=== PATIENT | female | born 1990 | race Caucasian/White ===

== ENCOUNTER 2019-06-10 17:59 | Inpatient (IN) | payer OTHER, SELFPAY ==
--- NOTE | ~2019-06-10 | CT_ITS ---
EXAMINATION: CT pelvis w con DATE: 06/10/2019 20:58 INDICATION: Pelvic abscess. Redness, warmth and pain. TECHNIQUE: Computed tomography (CT) of the pelvis was performed with 100 cc Omnipaque 350 intravenous contrast. The dose-length product was 997.40 mGy-cm. Automated exposure control and iterative recons truction technique were employed. COMPARISON: None FINDINGS: There is inflammation of the subcutaneous tissues anteriorly overlying the pelvis. No discr ete walled off fluid collection to suggest abscess. Nonenlarged inguinal lymph nodes are present. No abnormal pelvic masses or fluid collections. Nonobstructive bowel gas pattern. No free air or free fl uid. No acute osseous abnormality. IMPRESSION: 1. Inflammation of the subcutaneous tissues overlying the pelvis anteriorly, consistent with cellulit is. No evidence for drainable fluid collection to suggest abscess. Reviewed, dictated and finalized at location A. IMPRESSION: 1. Inflammation of the subcutaneous tissues overlying the pelvis anteriorly, co nsistent with cellulitis. No evidence for drainable fluid collection to suggest abscess.
[2019-06-10 18:10] VITALS: BP 132/82; BP 143/84; PULSE 136; PULSE 138; RESP 18; RESP 19; TEMP 38.3; O2SAT 100; O2SAT 99
[2019-06-10 18:59] LABS: Basophils Percent Auto 0.2 % (0.2-1.2); Eosinophils Absolute Auto 0.1 K/mm3 (0-0.3); Eosinophils Percent Auto 0.4 % (0-4.4); Hematocrit 35.4 % (37.0-47.0); Hemoglobin 10.7 g/dL (12.0-15.0); Immature Granulocyte Absolute 0.06 K/mm3 (0.00-0.031); Immature Granulocyte Percent A 0.5 % (0-0.5); Lymphocytes Absolute Auto 1.74 K/mm3 (0.9-3.2); Lymphocytes Percent Auto 14.7 % (18.3-44.2); Mean Corpuscular HGB Conc 30.2 g/dl (32-36); Mean Corpuscular Hemoglobin 21.5 pg (26-34); Mean Corpuscular Volume 71.1 fl (80-100); Mean Platelet Volume 10.4 fl (7.4-10.4); Monocytes Absolute Auto 0.9 K/mm3 (0.1-0.6); Monocytes Percent Auto 7.5 % (2.6-8.5); Neutrophils Absolute Auto 9.1 K/mm3 (1.3-6.7); Neutrophils Percent Auto 76.7 % (45.5-73.1); Platelet Count Result 194 k/mm3 (150-375); Red Blood Count 4.98 M/mm3 (4.2-5.4); Red Cell Distribution Width 16.9 % (11.5-14.5); White Blood Count 11.9 K/mm3 (4.5-10.0)
[2019-06-10] MEDS: SODIUM CHLORIDE 0.9% IV 1,000 ML 999 ML IV CONT ×2 (19:09→21:47)
[2019-06-10 19:10] LABS: Lactic Acid Reflex 1.8 mmol/L (0.7-2.1)
[2019-06-10 19:13] LABS: Blood Urea Nitrogen 5 mg/dL (7-17); Calcium 8.6 mg/dL (8.4-10.2); Carbon Dioxide 26 mmol/L (22-30); Chloride 100 mmol/L (98-107); Estimated CRCL calculation 135 ml/min; Estimated Glomerular Filt Rate > 60; Glucose 163 mg/dL (65-105); Potassium 3.5 mmol/L (3.4-5.0); Sodium 135 mmol/L (137-145)
--- NOTE | 2019-06-10 19:22 | ED.SKABFB ---
HPI - Skin/Abscess/Foreign Bdy General Chief complaint: Skin/Abscess/Foreign Body <CHIDI Reis Last Filed: 06/10/19 21:39> Stated complaint: abscess <CHIDI Reis Last Filed: 06/10/19 21:39> Time Seen by Provider: 06/10/19 18:36 <CHIDI Reis Last Filed: 06/10/19 21:39> Source: patient <CHIDI Reis Last Filed: 06/10/19 21:39> Mode of arrival: ambulatory <CHIDI Resi Last Filed: 06/10/19 21:39> Limitations: no limitations <CHIDI Reis Last Filed: 06/10/19 21:39> History of Present Illness HPI narrative: This is a 28 year old female that presents to the ER for abscess x 3 days. Reports an abscess in the pubic region. Reports she was seen at [facility] for this yesterday and it was drained. Reports only a small amount of drainage was produced. She took 3 doses of Bactrim so far. Reports since this morning the area of redness and swelling has increased. Also reports a fever today. Denies vomiting. <CHIDI Reis Last Filed: 06/10/19 21:39> Related Data Home medications: Home Medications Medication Instructions Recorded Confirmed hydrocodone-acetaminophen [[place]] 06/10/19 sulfamethoxazole-trimethoprim 06/10/19 [Bactrim DS] <CHIDI Reis Last Filed: 06/10/19 21:39> Allergies/Adverse reactions: Allergies Allergy/AdvReac Type Severity Reaction Status Date / Time No Known Allergies Allergy Verified 06/10/19 18:12 <CHIDI Reis Last Filed: 06/10/19 21:39> Review of Systems Review of Systems: Narrative: CONSTITUTIONAL: Reports fever GASTROINTESTINAL: Denies abdominal pain, nausea, vomiting GENITOURINARY: Denies dysuria SKIN: Reports erythema and edema <CHIDI Reis Last Filed: 06/10/19 21:39> All systems reviewed & are unremarkable except as noted in HPI and below <Miladys Doherty PA-C - Last Filed: 06/10/19 21:39> [facility] Social History Social History: Social History (Updated 06/10/19 @ 19:24 by Miladys Doherty PA-C) Smoking status: Never smoker Alcohol intake: never Substance use: never Gender identity (if verbalized by the patient): Female <Miladys Doherty PA-C - Last Filed: 06/10/19 21:39> Exam Narrative: Exam Narrative: GENERAL: Well-appearing, well-nourished, and in no acute distress. HEAD: Normocephalic, atraumatic. EYES: EOMI. ABDOMEN: Soft, nontender, nondistended, normal active bowel sounds. EXTREMITIES: Normal range of motion. No edema. SKIN: Warm, dry. Large area of erythema and edema to the mons pubis with purulent drainage NEURO: No focal deficits. Alert and oriented x3. PSYCH: Normal mood and affect <Miladys Doherty PA-C - Last Filed: 06/10/19 21:39> Course APPARATUS LINEMAN/PA Physician Supervision For this patient encounter, I reviewed the APPARATUS LINEMAN or PA documentation, treatment plan, and medical decision making; and I had [id number] time with this patient. Patient evaluated at bedside with physician automobile mechanic assistant. Patient is febrile and tachycardic meeting criteria for sepsis. Patient has cellulitis of the pubic region. No drainable fluid collection noted on imaging and patient had attempt at I&D at another hospital previously. Patient will be admitted to hospitalist service for IV antibiotics and further care. Patient reports pain with movement, but is currently comfortable. <Danay Huizar MD - Last Filed: 06/10/19 21:49> Consultations Consultation #1: Spoke with hospitalist about patient and work-up who accepts admission <Miladys Doherty PA-C - Last Filed: 06/10/19 21:39> Date: 06/10/19 <Miladys Doherty PA-C - Last Filed: 06/10/19 21:39> Time: 21:37 <Miladys Doherty PA-C - Last Filed: 06/10/19 21:39> Vital Signs Vital signs: Vital Signs Temperature 101.0 F H 06/10/19 18:10 Pulse Rate 136 H 06/10/19 18:10 Respiratory Rate 19 06/10/19 18:10 Blood Pressure 143/84 H
[2019-06-10 19:23] LABS: CRP 19.2 mg/dL (<1.0)
[2019-06-10 19:34] LABS: Erythrocyte Sedimentation Rate 19 mm/hr (0-20)
[2019-06-10 20:54] LABS: Add Urine Microscopic? YES; Appearance Urine Clear (Clear); Bilirubin Urine Negative (Negative); Blood Urine Negative (Negative); Color Urine Yellow (Yellow); Glucose Urine UA Negative (Negative); Ketones Urine Negative (Negative); Leukocyte Esterase Ur Negative LEU/UL (Negative); Mucus Urine Few /lpf; Nitrate Urine Negative (Negative); Protein Urine 2+ mg/dL (Negative); Squamous Epithelial Cell Urine Many /hpf (Few)
[2019-06-10 20:55] LABS: Specific Grav Ur 1.031 (1.001-1.035)
[2019-06-10 21:00] VITALS: BP 116/78; PULSE 118; RESP 18; O2SAT 98
--- NOTE | 2019-06-10 21:21 | PC.NURSE ---
multiple iv lines infiltrated and meds started and stopped twice
[2019-06-10 21:28] LABS: Hemoglobin A1C 6.1 % (<5.7)
[2019-06-10 22:00] VITALS: BP 119/80; PULSE 103; RESP 20; O2SAT 100
[2019-06-10 22:58] VITALS: BP 126/91; PULSE 104; RESP 20; O2SAT 100
--- NOTE | 2019-06-10 23:05 | PC.NURSE ---
This patient, Charleen Wilkerson, was admitted to Medical Room 249-01. Patient/family oriented to hospital policies and general routines including ID bracelet, bed and alarms, visiting hours, pain management, procedures, bathroom and other care routines, personal items, smoking policy, room service/diet, and visiting hours. Valuables list has been completed. Information on how to activate the Rapid Response Team has been discussed. Patient/Family are encouraged to report perceived risks to care and to ask questions if they do not understand what they are told or what they should do.
[2019-06-10] MEDS: SODIUM CHLORIDE 0.9% IV 1,000 ML 125 ML IV CONT (23:12)
[2019-06-10 23:36] VITALS: BP 123/74; PULSE 103; RESP 16; TEMP 37; O2SAT 100; BMI 44.4
--- NOTE | 2019-06-11 00:05 | PM.IMHP ---
H&P: HPI History of Present Illness Chief complaint: Suprapubic abscess, fever Narrative: Date and time of patient contact: 06/11/2019 around midnight Charleen Wilkerson is a 28 year old female with a past medical history of obesity and gestational diabetes who presented to the ER due to worsening erythema around her suprapubic abscess despite antibiotic therapy. The patient reports that she had been to [facility] ER on 06/09/2019 due to erythema to her mons pubis. She had a small localized area of erythema that was tender to palpation with some mild surrounding erythema. The provider at the outside ER attempted to open the area of abscess with not much return of infected material. Patient was discharged home on Bactrim. Despite taking 3 doses of Bactrim patient had had fevers of 101? on and off all day on the . She also noticed increased erythema to her mons pubis extending up into her pannus fold and spread of erythema laterally as well. She reports that she had been having a pain in her mons pubis for approximately 3 days and thought she had an ingrown hair. She subsequently used a electric razor to shave so that she go localize the exact side of infection. She reports that she had not shaved her months prior to that. She also had had 2 small punctate areas of erythema to her right upper thigh that have remained stable if not had any purulence drainage. She has had decreased appetite due to her infection but denies any nausea or vomiting. After IV fluids and antibiotics were received in the ER the patient reported a return of her appetite and she was able to tolerate to turkey sandwich prior to my evaluation. She denies any dysuria or changes in urinary frequency. She has not had any polydipsia, polyuria or polyphagia. She has not had any cough, cold symptoms or recent ill contacts. She lives at home with her [id number] daughter. She does not have a history of prior recurrent skin infections. She reports moderate tenderness to palpation of mons. Her pain was unrelieved despite receiving a prescription for Adin and antibiotics from outside facility. Review of Systems Review of Systems: Narrative: 12 systems were reviewed with pertinent positives and negatives per HPI. Except as documented in the HPI, all other systems were reviewed and are negative. [facility] Past Medical History Medical History Gestational diabetes Obesity, morbid, BMI 40.0-49.9 Surgical History Surgical History No significant past surgical history Family History Family History Father Hypertension Diabetes mellitus Mother Diabetes mellitus Sibling Patient's brother is in good health Social History Social History (Updated 06/11/19 @ 02:05 by Alma Pruett DO) Social History: The patient is the youngest of 8 children. However she only has 1 full sibling. Primary care physician: None Code status: Full code Smoking status: Never smoker Alcohol intake: never Substance use: never Living arrangements: with family Additional living arrangements comments: The patient lives at home with her [id number] daughter. 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 Gender identity (if verbalized by the patient): Female Spiritual care concerns: No Agree to blood products: Yes Meds Home Medications and Allergies Home Medications Medication Instructions Recorded Confirmed Type sulfamethoxazole-trimethoprim 1 tablet PO Q12H 06/10/19 06/10/19 History [Bactrim DS] Allergies Allergy/AdvReac Type Severity Reaction Status Date / Time No Known Allergies Allergy Verified 06/10/19 18:12 Vital Signs Vital Sign
[2019-06-11] MEDS: KETOROLAC 30 MG/ML VIAL (*BKC) IV PUSH (04:28)
[2019-06-11 04:52] LABS: Hemoglobin 9.6 g/dL (12.0-15.0); Mean Corpuscular Hemoglobin 21.1 pg (26-34); Mean Corpuscular Volume 70.3 fl (80-100); Mean Platelet Volume 10.9 fl (7.4-10.4); Platelet Count Result 180 k/mm3 (150-375); Red Blood Count 4.55 M/mm3 (4.2-5.4); Red Cell Distribution Width 16.9 % (11.5-14.5); White Blood Count 10.1 K/mm3 (4.5-10.0)
[2019-06-11 05:09] LABS: Blood Urea Nitrogen 5 mg/dL (7-17); Carbon Dioxide 24 mmol/L (22-30); Chloride 105 mmol/L (98-107); Estimated CRCL calculation 186 ml/min; Estimated Glomerular Filt Rate > 60; Glucose 151 mg/dL (65-105); Potassium 3.8 mmol/L (3.4-5.0); Sodium 135 mmol/L (137-145)
[2019-06-11 06:00] VITALS: BP 115/65; PULSE 102; RESP 18; TEMP 35.4; O2SAT 99
[2019-06-11] MEDS: SODIUM CHLORIDE 0.9% IV 1,000 ML 125 ML IV CONT (07:16)
[2019-06-11] MEDS: ENOXAPARIN 40 MG/0.4 ML SYRINGE SUB-Q ×2 (08:32→20:51)
--- NOTE | 2019-06-11 12:11 | PM.IMPN ---
Progress Note: A&P Assessment and Plan (1) Sepsis: Qualifiers: Sepsis acute organ dysfunction status: without acute organ dysfunction Sepsis type: sepsis due to unspecified organism Qualified Code(s): A41.9 - Sepsis, unspecified organism Code(s): A41.9 - Sepsis, unspecified organism Status: Acute Assessment and Plan: Due to cellulitis/abscess of the mons pubis She was found to be septic with fever, tachycardia, leukocytosis on arrival. Today, she is still tachycardic, and last fever was 1800 last night. Will continue monitoring sepsis. (2) Cellulitis: Qualifiers: Site of cellulitis: trunk Site of cellulitis of trunk: groin Qualified Code(s): L03.314 - Cellulitis of groin Code(s): L03.90 - Cellulitis, unspecified Status: Acute Assessment and Plan: The patient failed outpatient antibiotics (Bactrim) that were prescribed by [facility] on 06/09/2019. Patient received 1 dose of vancomycin in the ER and [address] Pelvis showed no acute abcess. I called [facility] and received her Wound Cultures which showed Heavy Growth of Staph aureus and today results showed MRSA. Sensitivities to Bactrim, Vancomycin, Doxycycline, Tetracycline, Linezolid, Gentamycin, Clindamycin. We will continue IV Vancomycin and Ancef at this time and continue monitoring overnight due to continued tachycardia and leukocytosis. Pending wound culture from our facility and blood cultures. Continue monitoring patients symptoms, labs and vitals. (3) History of MRSA infection: Code(s): Z86.14 - Personal history of Methicillin resistant Staphylococcus aureus infection Status: Acute Assessment and Plan: Records from [facility] show MRSA infection to her wound from 06/09/2019 (4) Obesity, morbid, BMI 40.0-49.9: Code(s): E66.01 - Morbid (severe) obesity due to excess calories Status: Acute Assessment and Plan: The patient has a hemoglobin A1c of 6.1 indicating increased risk of diabetes. She denies any excessive daytime sleepiness, snoring or abnormally disrupted sleep. A discussion of the potential benefits of a 10% loss in body weight and or addition of exercise to her daily routine was discussed. Time Spent With Patient Time with patient: 25 - 35 minutes Subjective Date/time seen: 06/11/19 12:11 Interval history: Date of Service 06/11/2019: The patient reports improvement to her erythema, edema to her panus today. She reported taking Bactrim as recommended for 3 doses and had continued worsening symptoms. She denies anymore fevers or chills today. She denies chest pain, shortness of breath, cough, nausea, vomiting, abdominal pain, diarrhea, leg swelling, calf pain,vaginal bleeding or any other symptoms at this time. Review of Systems Review of Systems: All systems reviewed & are unremarkable except as noted in HPI and below Exam Narrative: Exam Narrative: General: 28-year-old woman sitting up in bed watching TV. Appears comfortable. In no acute distress. Skin: See picture. No jaundice or cyanosis. Good skin turgor. Neck: Full range of motion. Supple. Nontender. Respiratory: Lungs are clear to auscultation bilaterally. No bony chest wall tenderness. Cardiovascular: The heart has a regular rate and rhythm without murmur. No carotid bruits. Lower extremities: No lower extremity edema. Distal pulses are easily palpated. No calf tenderness to palpation. Gastrointestinal: The abdomen is soft, nontender and nondistended with active bowel sounds. Psychiatric: Lucid and oriented. Memory intact. Neurologic: No focal deficits. Speech is clear. No facial drooping. : Female genitals images: 1. Superior border of slight eryth
[2019-06-11 13:25] VITALS: BP 128/70; PULSE 118; RESP 16; TEMP 38.3; O2SAT 100
[2019-06-11 13:29] VITALS: TEMP 38.2
--- NOTE | 2019-06-11 13:33 | PC.NURSE ---
MIKE MONK NOTIFIED OF TEMP 100.8.
[2019-06-11 21:33] VITALS: BP 134/64; PULSE 114; RESP 20; TEMP 37.2; O2SAT 100
[2019-06-12] MEDS: KETOROLAC 30 MG/ML VIAL (*BKC) IV PUSH (05:11)
[2019-06-12 05:17] LABS: Basophils Percent Auto 0.2 % (0.2-1.2); Eosinophils Absolute Auto 0.1 K/mm3 (0-0.3); Eosinophils Percent Auto 1.6 % (0-4.4); Hematocrit 28.7 % (37.0-47.0); Hemoglobin 8.6 g/dL (12.0-15.0); Immature Granulocyte Absolute 0.05 K/mm3 (0.00-0.031); Immature Granulocyte Percent A 0.6 % (0-0.5); Lymphocytes Absolute Auto 1.73 K/mm3 (0.9-3.2); Lymphocytes Percent Auto 21.1 % (18.3-44.2); Mean Corpuscular Hemoglobin 21.2 pg (26-34); Mean Corpuscular Volume 70.9 fl (80-100); Mean Platelet Volume 10.7 fl (7.4-10.4); Monocytes Absolute Auto 0.7 K/mm3 (0.1-0.6); Neutrophils Absolute Auto 5.6 K/mm3 (1.3-6.7); Neutrophils Percent Auto 68.5 % (45.5-73.1); Platelet Count Result 157 k/mm3 (150-375); Red Blood Count 4.05 M/mm3 (4.2-5.4); Red Cell Distribution Width 16.9 % (11.5-14.5); White Blood Count 8.2 K/mm3 (4.5-10.0)
[2019-06-12 05:36] LABS: Transferrin 222 mg/dL (206-381)
[2019-06-12 05:42] LABS: Blood Urea Nitrogen 4 mg/dL (7-17); CRP 17.7 mg/dL (<1.0); Calcium 8.1 mg/dL (8.4-10.2); Carbon Dioxide 26 mmol/L (22-30); Chloride 105 mmol/L (98-107); Estimated CRCL calculation 137 ml/min; Estimated Glomerular Filt Rate > 60; Glucose 124 mg/dL (65-105); Potassium 3.6 mmol/L (3.4-5.0); Sodium 137 mmol/L (137-145)
[2019-06-12 06:00] VITALS: BP 121/74; PULSE 92; RESP 16; TEMP 36.3; O2SAT 98
[2019-06-12 06:27] LABS: Iron 14 ug/dL (37-170)
[2019-06-12 06:36] LABS: Folic Acid 14.3 ng/mL (2.76->20); Percent Iron Saturation 5 % (20-50)
[2019-06-12] MEDS: ENOXAPARIN 40 MG/0.4 ML SYRINGE SUB-Q (08:14)
[2019-06-12] MEDS: CYANOCOBALAMIN INJ 1,000 MCG/ML VIAL 1000 MCG IM (08:56)
[2019-06-12 13:17] VITALS: BP 129/64; PULSE 113; RESP 18; TEMP 36.8; O2SAT 100
[2019-06-12 14:00] VITALS: BP 145/68; PULSE 110; RESP 17; TEMP 37; O2SAT 100
[2019-06-12 14:59] LABS: Hematocrit 30.3 % (37.0-47.0); Hemoglobin 9.2 g/dL (12.0-15.0)
--- NOTE | 2019-06-12 16:00 | PM.DS ---
DS: Diagnosis Admitting Diagnosis Admitting Diagnosis: Sepsis, unspecified organism Discharge Diagnosis (1) Sepsis: Qualifiers: Sepsis acute organ dysfunction status: without acute organ dysfunction Sepsis type: sepsis due to unspecified organism Qualified Code(s): A41.9 - Sepsis, unspecified organism Code(s): A41.9 - Sepsis, unspecified organism Status: Acute Assessment and Plan: Due to cellulitis/abscess of the mons pubis She was found to be septic with fever, tachycardia, leukocytosis on arrival. Today, she has not had a fever in over 24 hours, nontachycardic this morning slight tachycardic this afternoon. Leukocytosis normalized with no left shift. She is feeling much better today. (2) Cellulitis: Qualifiers: Site of cellulitis: trunk Site of cellulitis of trunk: groin Qualified Code(s): L03.314 - Cellulitis of groin Code(s): L03.90 - Cellulitis, unspecified Status: Acute Assessment and Plan: The patient failed outpatient antibiotics (Bactrim) that were prescribed by [facility] on 06/09/2019. Patient received 1 dose of vancomycin in the ER and [address] Pelvis showed no acute abcess. I called [facility] and received her Wound Cultures which showed Heavy Growth of Staph aureus and today results showed MRSA. Sensitivities to Bactrim, Vancomycin, Doxycycline, Tetracycline, Linezolid, Gentamycin, Clindamycin. Wound Culture growing Staph aureus and pending sensitivities. Blood cultures show no growth at this time. She is feeling much better today. Since Bactrim was sensitive on [facility] Sensitivites for MRSA will continue her on Bactrim that she has at home, and she states she was given 20 tablets and only took 3 of them. I told her to take the rest of her prescription and follow up with her primary care provider. She states [facility] set her up with a Wound Care Consultation for Friday and she is going to follow up with them as well. Told her to continue changing dressing multiple times a day depending on the amount of drainage she has. She understands and agrees with the plan. All questions answered. (3) History of MRSA infection: Code(s): Z86.14 - Personal history of Methicillin resistant Staphylococcus aureus infection Status: Acute Assessment and Plan: Records from [facility] show MRSA infection to her wound from 06/09/2019 (4) Obesity, morbid, BMI 40.0-49.9: Code(s): E66.01 - Morbid (severe) obesity due to excess calories Status: Acute Assessment and Plan: The patient has a hemoglobin A1c of 6.1 indicating increased risk of diabetes. She denies any excessive daytime sleepiness, snoring or abnormally disrupted sleep. A discussion of the potential benefits of a 10% loss in body weight and or addition of exercise to her daily routine was discussed. DS: Summary Hospital Course Reason for hospitalization: Patient is a 28-year-old woman with a history of gestational diabetes, who presented to the emergency department with worsening redness, swelling, drainage, pain to her lower pubic area and associated fevers and chills. She was seen a [facility] on 06/09/2019 and they performed an I&D and took a culture of the drainage. She was discharged on oral Bactrim and she took it for 3 doses with no improvement and continued fevers and decided to come to our ER. Showed temperature of 101?, blood pressure 143/84, heart rate 136, respiratory rate 19, oxygen saturation 100% on room air. Initial labs showed leukocytosis at 11,900 with a left shift, slight microcytic anemia, slight hyponatremia, hemoglobin A1c was 6.1, lactic acid was normal at 1.8, CRP was elevated at 19.2. Patient's urinalysis was
[2019-06-15 03:36] LABS: Intrinsic Factor Blocking Ab Positive (Negative)
--- NOTE | 2019-06-21 13:20 | PC.NURSE ---
Blood cx are negative
== END 2019-06-12 17:49 | disposition home or self-care (01) | DRG 720 ==
LOC: ANHED 21:38 → ANH2MED 22:08
PROVIDERS: Internal Medicine; Physician Assistant; Admitting Provider Family Medicine; Emergency Provider Emergency Medicine; Visit Provider Internal Medicine
DX: A41.9 Sepsis, unspecified organism (principal); E66.01 Morbid (severe) obesity due to excess calories; Z68.41 Body mass index [BMI] 40.0-44.9, adult; Z86.32 Personal history of gestational diabetes; R73.03 Prediabetes; R65.20 Severe sepsis without septic shock; N76.2 Acute vulvitis; A49.02 Methicillin resistant Staphylococcus aureus infection, unspecified site; L03.314 Cellulitis of groin
CPT/HCPCS: 36415; 72193; 80048; 81001; 81025; 82607; 82728; 82746; 83036; 83540; 83550; 83605; 84466; 85014; 85018; 85025; 85027; 85652; 86140; 86340; 87040; 87070; 87147; 87186; 87205; 96365; 96367; 96375; 99285; J0131; J0690; J1650; J1756; J1885; J3370; J3420; J7030; Q9967

== ENCOUNTER 2020-01-29 15:08 | Emergency (ER) | payer OTHER, SELFPAY ==
--- NOTE | ~2020-01-29 | CT_ITS ---
EXAMINATION: CT abdomen pelvis wo con DATE: 01/29/2020 16:29 INDICATION: Flank pain and left lower quadrant abdominal pain with nausea and vomiting TECHNIQUE: Computed tomography (CT) of the abdomen and pelvis was performed without intravenous contr ast. Automated exposure control and iterative reconstruction technique were employed. The dose-length product was 1430.66 mGy-cm. COMPARISON: Pelvis CT dated 06/10/2019 FINDINGS: Lung bases are clear. Heart size is normal. No pericardial or pleural effusion. Diffuse hepatic steat osis with focal sparing along the gallbladder fossa. Gallbladder, spleen, pancreas, right kidney and bilateral adrenal glands are normal. There is a 2 mm stone at a lower pole calyx of the left kidney. There is mild left hydroureteronephrosis which extends into the pelvis. There is an unchanged pattern of multiple phleboliths in the pelvis but no definitive obstructing ureteral stone. Decompressed cely dder is unremarkable with no evident bladder stones. Anteverted uterus and left adnexa are unremarkab le. Suggestion of an unchanged 3 cm right adnexal cyst but with slightly greater than simple fluid at tenuation. There is mild colonic diverticulosis with a sigmoid predominance. There is no adjacent inf lammatory change to suggest diverticulitis. Small bowel and appendix are normal. No free intraperiton eal gas or fluid. No pathologically enlarged abdominal or pelvic lymphadenopathy. IMPRESSION: 1. Mild left hydroureteronephrosis with 2 mm nonobstructing stone in the left kidney but no evident o bstructing mass or distal ureteral stone. Correlate with urinalysis and for improvement in reported f lank pain. 2. Unchanged 3 cm right adnexal lesion with slightly greater than simple fluid attenuation most likel y a complex cyst. Differential would include endometrioma or less likely solid neoplasm. Consider pel leola ultrasound for further evaluation. 3. Diffuse hepatic steatosis. Reviewed, dictated and finalized at location A. DIGGER IMPRESSION: 1. Mild left hydroureteronephrosis with 2 mm nonobstructing stone in the left k idney but no evident obstructing mass or distal ureteral stone. Correlate with urinalysis and for improvement in reported flank pain. 2. Unchanged 3 cm right adnexal lesion with slightly greater than simple fluid attenuation most likely a complex cyst. Differential would include endometrioma or less likely solid neoplasm. Consider pelvic ultrasound for further evaluati on. 3. Diffuse hepatic steatosis.
--- NOTE | ~2020-01-29 | XR_ITS ---
EXAMINATION: XR abdomen/kub 1V DATE: 01/29/2020 16:35 INDICATION: Left-sided stomach pain. Nausea and vomiting. TECHNIQUE: A supine view of the abdomen on 2 radiographs was obtained. COMPARISON: CT dated 01/29/2020 FINDINGS: No dilated loops of gas-filled bowel to suggest obstruction. 2 mm stone projects over the lower pole of the left kidney. Multiple round and ovoid phleboliths in the pelvis, predominantly on the left whi ch appears unchanged in size and configuration when compared with prior CT dated 06/10/2019. Bones are unremarkable. Lung bases are clear. Heart size is normal. IMPRESSION: 1. 2 mm left renal stone. Reviewed, dictated and finalized at location A. IFIED MASTER SAFECR[employer]ER IMPRESSION: 1. 2 mm left renal stone.
[2020-01-29 15:13] VITALS: BP 153/96; PULSE 91; RESP 18; TEMP 36.6; O2SAT 100
[2020-01-29] MEDS: SODIUM CHLORIDE 0.9% IV 1,000 ML 999 ML IV CONT (16:00)
[2020-01-29] MEDS: FAMOTIDINE 20 MG/2 ML VIAL IV PUSH (16:01)
[2020-01-29] MEDS: ONDANSETRON INJ 4 MG/2 ML VIAL IV PUSH (16:01)
[2020-01-29 16:03] LABS: Basophils Absolute Auto 0.1 K/mm3 (0.0-0.1); Basophils Percent Auto 0.5 % (0.2-1.2); Eosinophils Percent Auto 0.2 % (0-4.4); Hematocrit 44.1 % (37.0-47.0); Hemoglobin 14.4 g/dL (12.0-15.0); Immature Granulocyte Absolute 0.06 K/mm3 (0.00-0.031); Immature Granulocyte Percent A 0.5 % (0-0.5); Lymphocytes Absolute Auto 1.28 K/mm3 (0.9-3.2); Lymphocytes Percent Auto 10.3 % (18.3-44.2); Mean Corpuscular HGB Conc 32.7 g/dl (32-36); Mean Corpuscular Hemoglobin 27.2 pg (26-34); Mean Corpuscular Volume 83.2 fl (80-100); Mean Platelet Volume 11.7 fl (7.4-10.4); Monocytes Absolute Auto 0.4 K/mm3 (0.1-0.6); Neutrophils Absolute Auto 10.6 K/mm3 (1.3-6.7); Neutrophils Percent Auto 85.5 % (45.5-73.1); Platelet Count Result 202 k/mm3 (150-375); White Blood Count 12.4 K/mm3 (4.5-10.0)
[2020-01-29 16:14] LABS: Alanine Aminotransferase 33 U/L (4-35); Albumin Level 4.8 g/dL (3.5-5.1); Alkaline Phosphatase 79 U/L (38-126); Anion Gap 8 mmol/L (8-16); Aspartate Amino Transferase 28 U/L (14-36); Bilirubin,Total 0.5 mg/dL (0.2-1.3); Blood Urea Nitrogen 12 mg/dL (7-17); Calcium 9.4 mg/dL (8.4-10.2); Carbon Dioxide 30 mmol/L (22-30); Chloride 101 mmol/L (98-107); Estimated CRCL calculation 116 ml/min; Estimated Glomerular Filt Rate > 60; Glucose 145 mg/dL (65-105); Lipase 108 U/L (23-300); Potassium 4.1 mmol/L (3.4-5.0); Sodium 139 mmol/L (137-145)
--- NOTE | 2020-01-29 16:19 | ED.GENADULT ---
HPI - General Adult General Chief complaint: Abdominal Pain <Jay Alves PA-C - Last Filed: 01/29/20 18:00> Stated complaint: sharp pain on left side, vomiting <Jay Alves PA-C - Last Filed: 01/29/20 18:00> Time Seen by Provider: 01/29/20 15:29 <Jay Alves PA-C - Last Filed: 01/29/20 18:00> Source: patient and family <Jay Alves PA-C - Last Filed: 01/29/20 18:00> Mode of arrival: ambulatory <Jay Alves PA-C - Last Filed: 01/29/20 18:00> Limitations: no limitations <CHIDI Lewis Last Filed: 01/29/20 18:00> History of Present Illness HPI narrative: Patient is a 29-year-old female who presents with left flank pain for the last 3 days pain intensified today with a sharp stabbing pain with associated nausea and emesis patient on arrival does not appear distressed patient does not take anything for her symptoms denies similar occurrence in the past presents with her mother <Jay Alves PA-C - Last Filed: 01/29/20 18:00> Related Data Allergies/adverse reactions: Allergies Allergy/AdvReac Type Severity Reaction Status Date / Time No Known Allergies Allergy Verified 01/29/20 15:16 <Jay Alves PA-C - Last Filed: 01/29/20 18:00> Review of Systems Review of Systems: All systems reviewed & are unremarkable except as noted in HPI and below <Jay Alves PA-C - Last Filed: 01/29/20 18:00> [facility] Past Medical History Medical History: Medical History (Updated 01/29/20 @ 17:59 by Jay Alves PA-C) Gestational diabetes Obesity, morbid, BMI 40.0-49.9 <CHIDI Lewis Last Filed: 01/29/20 18:00> Surgical History Surgical History: Surgical History No significant past surgical history <Jay Alves PA-C - Last Filed: 01/29/20 18:00> Family History Family History: Family History Father Hypertension Diabetes mellitus Mother Diabetes mellitus Sibling Patient's brother is in good health <Jay Alves PA-C - Last Filed: 01/29/20 18:00> Social History Social History: Social History Social History: The patient is the youngest of 8 children. However she only has 1 full sibling. Primary care physician: None Code status: Full code Smoking status: Never smoker Alcohol intake: never Substance use: never Additional living arrangements comments: The patient lives at home with her [id number] daughter. 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 Gender identity (if verbalized by the patient): Female Spiritual care concerns: No Agree to blood products: Yes <Jay Alves PA-C - Last Filed: 01/29/20 18:00> Exam Narrative: Exam Narrative: GENERAL: Well-appearing, well-nourished, and in no acute distress. HEAD: Normocephalic, atraumatic. EYES: PERRLA and EOMI. ENT: Nares clear, no rhinorrhea or epistaxis. Mucous membranes moist. CHEST: Clear to auscultation. No respiratory distress. No wheezes rales or rhonchi HEART: Regular rate and rhythm. No murmur heard. Normal peripheral pulses. ABDOMEN: Soft, left flank tenderness, nondistended EXTREMITIES: Normal range of motion. No edema. SKIN: Warm, dry, no rash. NEURO: No focal deficits. Alert and oriented x3. Cranial nerves II through XII grossly intact PSYCH: Normal mood and affect. <Jay Alves PA-C - Last Filed: 01/29/20 18:00> Course Course Emergency Course: Patient in the room evaluated had improvement with medications afebrile nontoxic-appearing no distress felt appropriate for outpatient reevaluation will be treated for urinary tract infection provided with reasons to return and agrees to follow with her pat
[2020-01-29 16:22] LABS: Add Urine Microscopic? YES; Appearance Urine Cloudy (Clear); Bilirubin Urine Negative (Negative); Blood Urine 3+ (Negative); Color Urine Yellow (Yellow); Glucose Urine UA Negative (Negative); Ketones Urine Negative (Negative); Leukocyte Esterase Ur 3+ LEU/UL (Negative); Mucus Urine Few /lpf; Nitrate Urine Negative (Negative); Protein Urine 2+ mg/dL (Negative); RBC Urine >75 /hpf (0-2); Specific Grav Ur 1.024 (1.001-1.035); Squamous Epithelial Cell Urine Many /hpf (Few); Urobilinogen Urine Negative mg/dL (<2.0); WBC Urine >75 /hpf
== END 2020-01-29 18:14 | disposition home or self-care (01) ==
PROVIDERS: Emergency Medicine; Emergency Provider General Practice
DX: N39.0 Urinary tract infection, site not specified (principal); E66.01 Morbid (severe) obesity due to excess calories; Z68.41 Body mass index [BMI] 40.0-44.9, adult
CPT/HCPCS: 36415; 74018; 74176; 80053; 81001; 81025; 83690; 85025; 87086; 87088; 96374; 96375; 99284; J0131; J0696; J2405; J7030

== ENCOUNTER 2020-08-21 15:48 | Emergency (ER) | payer OTHER, SELFPAY ==
[2020-08-21 15:52] VITALS: BP 129/82; PULSE 105; RESP 18; TEMP 37.4; O2SAT 100
--- NOTE | 2020-08-21 16:41 | ED.EAR ---
HPI - Ear Problem General Chief complaint: Ear Stated complaint: Possible Left Ear Infection Time Seen by Provider: 08/21/20 16:41 Source: patient, RN notes reviewed and old records reviewed Mode of arrival: ambulatory Limitations: no limitations History of Present Illness HPI Narrative: 29 year old female who presents to [facility] care with complaints of 3 days of left ear pain with muffled hearing. Patient states that she has not had any drainage from her left ear, denies any known fevers chills or sweats. Patient states no recent swimming or travel, denies any sinus congestion or drainage, no sore throat or any cough. MD Complaint: ear pain and decreased hearing Location: left ear Duration: constant Severity: moderate Relieving factors: nothing Discharge from ear: Reports no Associated symptoms ear: decreased hearing Treatment prior to arrival: none Related Data Allergies Allergy/AdvReac Type Severity Reaction Status Date / Time No Known Allergies Allergy Verified 08/21/20 16:04 Review of Systems Review of Systems: Narrative: CONSTITUTIONAL: Denies fever, chills, or sweats. EYES: Denies visual changes, redness, or discharge. ENT: Denies rhinorrhea, congestion, sore throat, positive for left ear pain and muffled hearing CARDIOVASCULAR: Denies chest pain, palpitations, or edema. RESPIRATORY: Denies cough or dyspnea. GASTROINTESTINAL: Denies abdominal pain, nausea, vomiting, or diarrhea. GENITOURINARY: Denies dysuria or hematuria. SKIN: Denies rash or itching. MUSCULOSKELETAL: Denies back pain, joint pain, or myalgia. NEUROLOGIC: Denies headache, numbness, or weakness. PSYCHIATRIC: Denies anxiety or depression. All systems reviewed & are unremarkable except as noted in HPI and below PMFSH Past Medical History Medical History (Updated 08/25/20 @ 14:51 by Destini Munroe NP) Gestational diabetes History of strep sore throat Obesity, morbid, BMI 40.0-49.9 Surgical History Surgical History No significant past surgical history Family History Family History Father Hypertension Diabetes mellitus Mother Diabetes mellitus Sibling Patient's brother is in good health Social History Social History Social History: The patient is the youngest of 8 children. However she only has 1 full sibling. Primary care physician: None Code status: Full code Smoking status: Never smoker Alcohol intake: never Substance use: never Additional living arrangements comments: The patient lives at home with her [id number] daughter. 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 Gender identity (if verbalized by the patient): Female Spiritual care concerns: No Agree to blood products: Yes Comments At time of signature, agree with nursing past medical, surgical, social and family history. There is no relevant family history pertinent to the presenting complaint Exam Narrative: Exam Narrative: GENERAL: Well-appearing, well-nourished, and in no acute distress. HEAD: Normocephalic, atraumatic. EYES: PERRLA and EOMI. ENT: Nares clear, no rhinorrhea or epistaxis. Mucous membranes moist.left TM red with effusion, right TM normal with good light reflex, no drainage from ear canals, throat pink with no lesions or exudates, no tonsil enlargement NECK: Supple.no lymphadenopathy CHEST: Clear to auscultation. No respiratory distress.SAO2 100% on room air HEART: Regular rate and rhythm. No murmur heard. Normal peripheral pulses. ABDOMEN: Soft, nontender, nondistended, normal active bowel sounds. EXTREMITIES: Normal range of motion. No edema. SKIN: Warm, dry, no rash. NEURO: No focal deficits. Alert and oriented x3. Course Vital Signs Vital signs: Vital S
== END 2020-08-21 17:05 | disposition home or self-care (01) ==
PROVIDERS: Emergency Provider Registered Nurse
DX: H65.02 Acute serous otitis media, left ear (principal); E66.01 Morbid (severe) obesity due to excess calories; Z68.41 Body mass index [BMI] 40.0-44.9, adult
CPT/HCPCS: 99213; G0463

== ENCOUNTER 2021-01-15 17:58 | Emergency (ER) | payer OTHER, SELFPAY ==
--- NOTE | 2021-01-15 18:01 | ED.EAR ---
HPI - Ear Problem General Chief complaint: Ear Stated complaint: Ear infection Time Seen by Provider: 01/15/21 18:01 Source: patient and RN notes reviewed History of Present Illness HPI Narrative: Patient is a 30-year-old female who presents the urgent care with complaints of right ear pain since yesterday. Patient states that she has been taking ibuprofen as needed for the pain. Patient states that a few months ago she did have a left ear infection and patient was on amoxicillin at that time. Patient denies of any drainage in the ear. Denies of putting anything in the ear such as [id number]-fdg-rzogzmr drops or Q-tips. Denies of any fever or other upper respiratory complaints. No acute distress noted. Patient aware of the plan of care. Some parts of this dictation were generated by voice recognition software and may contain typographical and/or grammatical inaccuracies. Related Data Allergies Allergy/AdvReac Type Severity Reaction Status Date / Time No Known Allergies Allergy Verified 01/15/21 18:11 Review of Systems Review of Systems: CONSTITUTIONAL: Denies fever, chills, or sweats. EYES: Denies visual changes, redness, or discharge. ENT: Denies rhinorrhea, congestion, sore throat. Reports of right otalgia CARDIOVASCULAR: Denies chest pain, palpitations, or edema. RESPIRATORY: Denies cough or dyspnea. GASTROINTESTINAL: Denies abdominal pain, nausea, vomiting, or diarrhea. GENITOURINARY: Denies dysuria or hematuria. SKIN: Denies rash or itching. MUSCULOSKELETAL: Denies back pain, joint pain, or myalgia. NEUROLOGIC: Denies headache, numbness, or weakness. All other systems reviewed are negative, except as documented in HPI. [facility] Past Medical History Medical History (Updated 01/15/21 @ 18:12 by MERLE Wilson) Gestational diabetes History of strep sore throat Obesity, morbid, BMI 40.0-49.9 Surgical History Surgical History No significant past surgical history Family History Family History Father Hypertension Diabetes mellitus Mother Diabetes mellitus Sibling Patient's brother is in good health Social History Social History Social History: The patient is the youngest of 8 children. However she only has 1 full sibling. Primary care physician: None Code status: Full code Smoking status: Never smoker Alcohol intake: never Substance use: never Additional living arrangements comments: The patient lives at home with her [id number] daughter. 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 Gender identity (if verbalized by the patient): Female Spiritual care concerns: No Agree to blood products: Yes Comments At the time of my signature, I reviewed and agree with the nursing past medical, surgical, social, and family history. There is no relevant family history pertinent to the patient complaint. Exam Narrative: GENERAL: This is a well-nourished, well-developed patient, in no apparent distress. HEAD: normocephalic, atraumatic. EYES: PERRL. Sclera clear/white. Vision is grossly intact. EARS: External ears normal, auditory canals clear and without drainage, moderate erythema noted to right TM with moderate effusion and scant drainage. Left TM normal without perforation. Hearing grossly intact. NOSE: External nose normal with no obvious nasal discharge, nares without redness, no rhinorrhea. THROAT: Mucous membranes moist, posterior pharynx clear. Nasal drainage NECK: Neck supple CARDIOVASCULAR: Regular rate and rhythm without murmurs, gallops, or rubs. RESPIRATORY: Clear to auscultation. Breath sounds equal bilaterally. No wheezes, rales, or rhonchi. SKIN: warm, intact with no suspicious lesions or rash, good texture
[2021-01-15 18:04] VITALS: BP 137/79; PULSE 114; RESP 20; TEMP 36.2; O2SAT 98
== END 2021-01-15 18:15 | disposition home or self-care (01) ==
PROVIDERS: Emergency Provider Nurse Practitioner Family
DX: H66.91 Otitis media, unspecified, right ear (principal); E66.01 Morbid (severe) obesity due to excess calories; Z68.41 Body mass index [BMI] 40.0-44.9, adult
CPT/HCPCS: 99213; G0463

== ENCOUNTER 2021-09-11 14:13 | Emergency (ER) | payer OTHER, SELFPAY ==
[2021-09-11 14:14] VITALS: BP 163/92; PULSE 121; RESP 16; TEMP 37.3; O2SAT 99
--- NOTE | 2021-09-11 14:38 | ED.GENADULT ---
HPI - General Adult General Chief complaint: Upper Respiratory Infection Stated complaint: Sore throat, headache Source: patient Mode of arrival: ambulatory Limitations: no limitations History of Present Illness HPI narrative: Patient presents for evaluation of sick symptoms for the past five hours. Reports headache of throat. She denies any fever, chills, nausea, vomiting, otalgia, shortness of breath, diarrhea or other symptoms. No recent sick contacts. No hx of COVID. She has been vaccination for COVID. She took one dose of cough and cold medicine but does not notice considerable improvement in her symptoms thereafter. She does not smoke. No additional complaints or concerns. Related Data Allergies Allergy/AdvReac Type Severity Reaction Status Date / Time No Known Allergies Allergy Verified 01/15/21 18:11 Review of Systems Review of Systems: CONSTITUTIONAL: Denies fever, chills, or sweats. EYES: Denies visual changes, redness, or discharge. ENT: Reports sore throat. Denies rhinorrhea, congestion, or otalgia. CARDIOVASCULAR: Denies chest pain, palpitations, or edema. RESPIRATORY: Reports cough. Denies shortness of breath. GASTROINTESTINAL: Denies abdominal pain, nausea, vomiting, or diarrhea. GENITOURINARY: Denies dysuria or hematuria. SKIN: Denies rash or itching. MUSCULOSKELETAL: Denies back pain, joint pain, or myalgia. NEUROLOGIC: Reports headache. Denies numbness, dizziness, or weakness. PSYCHIATRIC: Denies anxiety or depression. [facility] Past Medical History Medical History Gestational diabetes History of strep sore throat Obesity, morbid, BMI 40.0-49.9 Surgical History Surgical History No significant past surgical history Family History Family History Father Hypertension Diabetes mellitus Mother Diabetes mellitus Sibling Patient's brother is in good health Social History Social History Social History: The patient is the youngest of 8 children. However she only has 1 full sibling. Primary care physician: None Code status: Full code Smoking status: Never smoker Alcohol intake: never Substance use: never Additional living arrangements comments: The patient lives at home with her [id number] daughter. 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 Gender identity (if verbalized by the patient): Female Spiritual care concerns: No Agree to blood products: Yes Exam Narrative: GENERAL: Well-appearing, well-nourished, and in no acute distress. HEAD: Normocephalic, atraumatic. EYES: PERRLA and EOMI. ENT: Nares clear, no rhinorrhea or epistaxis. Mucous membranes moist. Oropharynx without tonsillar hypertrophy exudate or other lesions. Bilateral ear canals are erythematous. Bilateral TMs pearly lala nonbulging NECK: Supple. No adenopathy or masses. No carotid bruits or JVD CHEST: Clear to auscultation. No respiratory distress. No wheezes rales or rhonchi HEART: Rate 115. Regular rhythm. No murmur heard. Normal peripheral pulses. ABDOMEN: Soft, nontender, nondistended, normal active bowel sounds. EXTREMITIES: Normal range of motion. No edema. SKIN: Warm, dry, no rash. NEURO: No focal deficits. Alert and oriented x3. PSYCH: Normal mood and affect. Course Course Emergency Course: This is a 30-year-old female who presented with 5-hour history of sick symptoms. Throat culture was obtained. Rapid strep not available. Heart rate on my exam 115. No chest pain/palpitation/SOB. Pt states she gets nervous when she is evaluated by medical providers so likely white coat syndrome. Will check COVID PCR. Exam is consistent with acute viral syndrome
[2021-09-11 19:25] LABS: SARS-CoV-2 RNA PCR Positive
== END 2021-09-11 14:45 | disposition home or self-care (01) ==
PROVIDERS: Emergency Provider Nurse Practitioner
DX: U07.1 COVID-19 (principal); E66.01 Morbid (severe) obesity due to excess calories; Z68.42 Body mass index [BMI] 45.0-49.9, adult
CPT/HCPCS: 87081; 99213; C9803; G0463; U0003; U0005

== ENCOUNTER 2022-03-18 13:58 | Emergency (ER) | payer OTHER, SELFPAY ==
[2022-03-18 14:02] VITALS: BP 136/90; PULSE 99; RESP 20; TEMP 36.9; O2SAT 100
--- NOTE | 2022-03-18 14:16 | ED.EYEPROB ---
HPI - Eye Problem General Chief complaint: Eye Problems Stated complaint: right eye poss stye Source: patient and RN notes reviewed History of Present Illness HPI Narrative: 31-year-old female presents to ED stating she thinks she has a stye in her right eye. Patient states she woke up this morning and feels area of swelling to her right inner eye. Patient denies any pain or itching. Denies any extraocular movement pain. Denies any fevers, chills, or visual disturbance. Patient did apply a warm compress to the area this morning and went to work. Some parts of this dictation were generated by voice recognition software and may contain typographical and/or grammatical inaccuracies. Related Data Home Medications Medication Instructions Recorded Confirmed No Home Medications 03/18/22 03/18/22 Allergies Allergy/AdvReac Type Severity Reaction Status Date / Time No Known Allergies Allergy Verified 03/18/22 14:04 Review of Systems Review of Systems: CONSTITUTIONAL: Denies fever, chills, or sweats. EYES: Swelling right in her eye. Denies drainage. ENT: Denies otalgia and sore throat CARDIOVASCULAR: Denies chest pain, palpitations, or edema. RESPIRATORY: Denies cough or dyspnea. GASTROINTESTINAL: Denies abdominal pain, nausea, vomiting, or diarrhea. GENITOURINARY: Denies dysuria or hematuria. SKIN: Denies rash or itching. MUSCULOSKELETAL: Denies back pain, joint pain, or myalgia. NEUROLOGIC: Denies headache, numbness, or weakness. Psychiatric: Denies anxiety or any suicidal or homicidal thoughts PMFSH Past Medical History Medical History Gestational diabetes History of strep sore throat Obesity, morbid, BMI 40.0-49.9 Surgical History Surgical History No significant past surgical history Family History Family History Father Hypertension Diabetes mellitus Mother Diabetes mellitus Sibling Patient's brother is in good health Social History Social History Social History: The patient is the youngest of 8 children. However she only has 1 full sibling. Primary care physician: None Code status: Full code Smoking status: Never smoker Alcohol intake: never Substance use: never Living arrangements: with family Additional living arrangements comments: The patient lives at home with her [id number] daughter. 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 Gender identity (if verbalized by the patient): Female Spiritual care concerns: No Agree to blood products: Yes Comments At the time of my signature, I reviewed and agree with the nursing past medical, surgical, social, and family history. There is no relevant family history pertinent to the patient complaint. Exam Narrative: GENERAL: This is a well-nourished, well-developed patient, in no apparent distress. HEAD: normocephalic, atraumatic. EYES: PERRL. Sclera clear/white. Vision is grossly intact. Small area right inner canthus noted to be erythemic and swollen. No drainage noted. EARS: External ears normal, auditory canals clear and without drainage, TMs normal without perforation. Hearing grossly intact. NOSE: External nose normal with no obvious nasal discharge, nares without redness, no rhinorrhea. THROAT: Mucous membranes moist, posterior pharynx clear. NECK: Neck supple, non-tender without lymphadenopathy, masses or thyromegaly. CARDIOVASCULAR: Regular rate and rhythm without murmurs, gallops, or rubs. RESPIRATORY: Clear to auscultation. Breath sounds equal bilaterally. No wheezes, rales, or rhonchi. GASTROINTESTINAL: Abdomen soft, non-tender, nondistended. Chandrakant
== END 2022-03-18 14:22 | disposition home or self-care (01) ==
PROVIDERS: Emergency Provider Nurse Practitioner Family
DX: H00.011 Hordeolum externum right upper eyelid (principal); E66.01 Morbid (severe) obesity due to excess calories; Z68.42 Body mass index [BMI] 45.0-49.9, adult
CPT/HCPCS: 99212; G0463

== ENCOUNTER 2022-03-26 19:35 | Emergency (ER) | payer OTHER, SELFPAY ==
[2022-03-26 19:49] VITALS: BP 154/86; PULSE 119; RESP 18; TEMP 37.7; O2SAT 97
--- NOTE | 2022-03-26 20:10 | ED.GENADULT ---
HPI - General Adult General Chief complaint: Upper Respiratory Infection Stated complaint: Rash/Skin Sore Finger Source: patient Mode of arrival: ambulatory Limitations: no limitations History of Present Illness HPI narrative: Patient presents for evaluation of sore throat. Symptom onset this morning. No fever, chills, nausea, vomiting, shortness of breath, cough. No recent sick contacts to her knowledge. She is not taking any medication to assist with her symptoms. No additional complaints or concerns. Related Data Allergies Allergy/AdvReac Type Severity Reaction Status Date / Time No Known Allergies Allergy Verified 03/18/22 14:04 Review of Systems Review of Systems: CONSTITUTIONAL: Denies fever, chills, or sweats. EYES: Denies visual changes, redness, or discharge. ENT: Reports sore throat. Denies rhinorrhea, congestion or otalgia. CARDIOVASCULAR: Denies chest pain, palpitations, or edema. RESPIRATORY: Denies cough or dyspnea. GASTROINTESTINAL: Denies abdominal pain, nausea, vomiting, or diarrhea. GENITOURINARY: Denies dysuria or hematuria. SKIN: Denies rash or itching. MUSCULOSKELETAL: Denies back pain, joint pain, or myalgia. NEUROLOGIC: Denies headache, numbness, dizziness, or weakness. PSYCHIATRIC: Denies anxiety or depression. [facility] Past Medical History Medical History Gestational diabetes History of strep sore throat Obesity, morbid, BMI 40.0-49.9 Surgical History Surgical History No significant past surgical history Family History Family History Father Hypertension Diabetes mellitus Mother Diabetes mellitus Sibling Patient's brother is in good health Social History Social History Social History: The patient is the youngest of 8 children. However she only has 1 full sibling. Primary care physician: None Code status: Full code Smoking status: Never smoker Alcohol intake: never Substance use: never Living arrangements: with family Additional living arrangements comments: The patient lives at home with her [id number] daughter. 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 Gender identity (if verbalized by the patient): Female Spiritual care concerns: No Agree to blood products: Yes Exam Narrative: GENERAL: Well-appearing, well-nourished, and in no acute distress. HEAD: Normocephalic, atraumatic. EYES: PERRLA and EOMI. ENT: Nares clear, no rhinorrhea or epistaxis. Mucous membranes moist. Bilateral tonsillar enlargement with erythema and white exudate. Uvula is midline.. Bilateral TMs pearly lala nonbulging NECK: Supple. No adenopathy or masses. No carotid bruits or JVD CHEST: Clear to auscultation. No respiratory distress. No wheezes rales or rhonchi HEART: Regular rate and rhythm. No murmur heard. Normal peripheral pulses. ABDOMEN: Soft, nontender, nondistended, normal active bowel sounds. EXTREMITIES: Normal range of motion. No edema. SKIN: Warm, dry, no rash. NEURO: No focal deficits. Alert and oriented x3. PSYCH: Normal mood and affect. Course Course Emergency Course: This is a 31-year-old female who presented for evaluation of sore throat. Rapid strep positive. Treat with amoxicillin. Follow up with primary provider. Iecc-[id number] agents for symptom management. Go to the ER for difficulty breathing or swelling. Patient agreed with plan of care. Level of Care: Express Care Visit Vital Signs Vital signs: Vital Signs Temperature 37.7 C H 03/26/22 19:49 Pulse Rate 119 H 03/26/22 19:49 Respiratory Rate 18 03/26/22 19:49 Blood Pressure 154/86 H 03/26/22 19:49 Pulse
== END 2022-03-26 20:09 | disposition home or self-care (01) ==
PROVIDERS: Emergency Provider Nurse Practitioner; PCP Emergency Medicine
DX: J02.0 Streptococcal pharyngitis (principal); E66.01 Morbid (severe) obesity due to excess calories; Z68.42 Body mass index [BMI] 45.0-49.9, adult
CPT/HCPCS: 87880; 99213; G0463

== ENCOUNTER 2022-10-24 18:16 | Emergency (ER) | payer OTHER, SELFPAY ==
--- NOTE | 2022-10-24 20:18 | PC.NURSE ---
10/24/22 1830 SEE DOWNTIME DOCUMENTATION. ANAYELI MARTINEZ RN
== END 2022-10-24 19:28 | disposition home or self-care (01) ==
PROVIDERS: Emergency Provider Nurse Practitioner Family
DX: J02.9 Acute pharyngitis, unspecified (principal)
CPT/HCPCS: 87081; 87880; 99213; G0463

== ENCOUNTER 2023-01-31 16:55 | Emergency (ER) | payer SELFPAY ==
[2023-01-31 17:02] VITALS: BP 148/96; PULSE 112; RESP 16; TEMP 36.6; O2SAT 97
--- NOTE | 2023-01-31 18:06 | ED.URI ---
HPI - URI/Sore Throat General Chief Complaint: Upper Respiratory Infection Stated Complaint: Cough/Chest Congestion Time Seen by Provider: 01/31/23 18:06 Source: patient, RN notes reviewed and old records reviewed Mode of arrival: ambulatory Limitations: no limitations History of Present Illness HPI Narrative: 32-year-old female who presents to [facility] Care with complaints of 2 week duration of cough which has been productive, some sinus drainage, and cough worse at night, and also some sore throat which started this morning. Patient reports that she has bee bring up greenish tinged phelgm. Patient reports that she has been taking OTC allergy pill,Robittusin and Mucinex DM for her symptoms without resolution. MD elicited complaint: cough, sore throat, rhinorrhea and nasal congestion Onset (ago): week(s) (2) Consistency: constant Severity: moderate Able to tolerate fluids by mouth: Yes Treatments prior to arrival: other (Mucinex DM, Robitussin, allergy pill) Related Data Allergies Allergy/AdvReac Type Severity Reaction Status Date / Time No Known Allergies Allergy Verified 01/31/23 17:09 Review of Systems Review of Systems: CONSTITUTIONAL: Denies fever, chills, or sweats. EYES: Denies visual changes, redness, or discharge. ENT: Denies rhinorrhea, congestion, sore throat, no otalgia. CARDIOVASCULAR: Denies chest pain, palpitations, or edema. RESPIRATORY:Reports cough denies dyspnea. GASTROINTESTINAL: Denies abdominal pain, nausea, vomiting, or diarrhea. GENITOURINARY: Denies dysuria or hematuria. SKIN: Denies rash or itching. MUSCULOSKELETAL: Denies back pain, joint pain, or myalgia. NEUROLOGIC: Denies headache, numbness, or weakness. PSYCHIATRIC: Denies anxiety or depression. All systems reviewed & are unremarkable except as noted in HPI and below PMFSH Past Medical History Medical History Gestational diabetes History of strep sore throat Obesity, morbid, BMI 40.0-49.9 Surgical History Surgical History No significant past surgical history Family History Family History Father Hypertension Diabetes mellitus Mother Diabetes mellitus Sibling Patient's brother is in good health Social History Social History Social History: The patient is the youngest of 8 children. However she only has 1 full sibling. Primary care physician: None Code status: Full code Smoking status: Never smoker Alcohol intake: never Substance use: never Living arrangements: with family Additional living arrangements comments: The patient lives at home with her [id number] daughter. 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 Gender identity (if verbalized by the patient): Female Spiritual care concerns: No Agree to blood products: Yes Comments At time of signature, agree with nursing past medical, surgical, social and family history. There is no relevant family history pertinent to the presenting complaint Exam Narrative: GENERAL: Well-appearing, well-nourished, and in no acute distress. HEAD: Normocephalic, atraumatic. EYES: PERRLA and EOMI. ENT: Nares clear, clear rhinorrhea no epistaxis. Mucous membranes moist.TM's normal throat red with no lesions or exudates or swelling. CHEST: Clear to auscultation. No respiratory distress.SAO2 97% on room air HEART: Regular rate and rhythm. No murmur heard. Normal peripheral pulses. ABDOMEN: Soft, nontender, nondistended, normal active bowel sounds. EXTREMITIES: Normal range of motion. No edema. SKIN: Warm, dry, no rash. NEURO: No focal deficits. Alert and oriented x3. Course Course Emergency Course: Patient i
== END 2023-01-31 18:16 | disposition home or self-care (01) ==
PROVIDERS: Emergency Provider Registered Nurse
DX: J32.9 Chronic sinusitis, unspecified (principal)
CPT/HCPCS: 99213; G0463

== ENCOUNTER 2023-02-19 12:10 | Emergency (ER) | payer SELFPAY ==
[2023-02-19 12:16] VITALS: BP 139/86; PULSE 108; RESP 18; TEMP 37; O2SAT 97
--- NOTE | 2023-02-19 12:25 | ED.GENADULT ---
HPI - General Adult General Chief complaint: Upper Respiratory Infection Stated complaint: cough/headache/rash Source: patient, RN notes reviewed and old records reviewed Mode of arrival: ambulatory Limitations: no limitations History of Present Illness HPI narrative: 5-year-old female presents with complaints of cough, congestion this started over 1 month ago. Patient states was seen here and given antibiotics but did not improve. Patient states now having headache and. Puretic rash to neck. Patient denies weakness, dizziness, chest pain, sore, throat, shortness of breath. MD complaint: Cough, congestion Onset (ago): month(s) (1) Related Data Allergies Allergy/AdvReac Type Severity Reaction Status Date / Time No Known Allergies Allergy Verified 02/19/23 12:24 Review of Systems Constitutional: Constitutional: Reports no additional constitutional complaints, Denies body ache(s), Denies chills, Denies fatigue, Denies fever(s) and Denies headache(s) Eyes: Eyes: Reports no additional eye complaints and Denies blurry vision ENT: Reports system reviewed and no additional complaints, except as documented, Denies vertigo, Denies dizziness, Denies ear discharge, Denies otalgia, Denies facial pain, Denies headache(s), Reports nasal congestion, Reports nasal discharge, Denies sinus pain, Denies sinus pressure and Denies sore throat Cardiovascular: Cardiovascular: Reports no additional cardiovascular complaints, Denies chest pain, Denies chest pain at rest, Denies rapid heart rate and Denies dyspnea Respiratory: Respiratory: Reports no additional respiratory complaints, Reports chest congestion, Reports cough, Denies pain on inspiration, Denies pain with cough and Denies dyspnea Gastrointestinal: Gastrointestinal: Denies abdominal pain, Denies diarrhea, Denies nausea and Denies vomiting Integumentary/Breasts: Skin/Breast: Reports rash Neurologic: Reports system reviewed and no additional complaints, except as documented, Denies vertigo, Denies dizziness and Denies headache(s) Endocrine: Endocrine: Denies fatigue PMFSH Past Medical History Medical History Gestational diabetes History of strep sore throat Obesity, morbid, BMI 40.0-49.9 Surgical History Surgical History No significant past surgical history Family History Family History Father Hypertension Diabetes mellitus Mother Diabetes mellitus Sibling Patient's brother is in good health Social History Social History Social History: The patient is the youngest of 8 children. However she only has 1 full sibling. Primary care physician: None Code status: Full code Smoking status: Never smoker Alcohol intake: never Substance use: never Living arrangements: with family Additional living arrangements comments: The patient lives at home with her [id number]-[id number] daughter. 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 Gender identity (if verbalized by the patient): Female Spiritual care concerns: No Agree to blood products: Yes Comments At the time of my signature, I reviewed and agree with the nursing past medical, surgical, social, and family history. There is no relevant family history pertinent to the patient complaint. Exam Const: General: cooperative, healthy appearing, no acute distress and well nourished Nutritional Appearance: well nourished Orientation/consciousness: patient oriented x3 Limitations: no limitations HENMT: Head: normal to inspection and normocephalic Ears: external ears normal, TM's normal bilaterally, mastoids normal and Abnormal EAC present Face/Nose/Sinus: normal faci
== END 2023-02-19 12:35 | disposition home or self-care (01) ==
PROVIDERS: Emergency Provider Registered Nurse
DX: J20.9 Acute bronchitis, unspecified (principal); J32.9 Chronic sinusitis, unspecified; E66.01 Morbid (severe) obesity due to excess calories; Z68.41 Body mass index [BMI] 40.0-44.9, adult
CPT/HCPCS: 99213; G0463

== ENCOUNTER 2024-06-25 08:15 | Emergency (ER) | payer SELFPAY ==
--- OUTSIDE RECORDS SUMMARY | 2024-06-26 12:52 | XMS_ITS ---
Care Plan - [facility] Created on: June 26, 2024 JOSEF DYER : 1990 Sex: Female Author Organization [facility] Address [address] [place] [address] Phone Care Team Providers Care Maintenance Parts Technician Name Role Phone Unavailable Unavailable Unavailable
--- OUTSIDE RECORDS SUMMARY | 2024-06-26 12:52 | XMS_ITS | Clinical Summary ---
Author Organization [facility] Address [address] [place] [address] Phone Care Team Providers Care Director Of Search Engine Marketing Name Role Phone Unavailable Unavailable Unavailable Reason for Visit and Chief Complaint MED CHECK Plan of Treatment No Plan of Treatment Recorded Assessments Includes: Assessments from this encounter No Assessments Recorded Medical Equipment - Implanted Devices Includes: Current Devices No Medical Equipment Recorded Medications Includes: Medications discussed during this encounter and other current Medications Discontinued / Stopped on this date on 12/03/2016 Flagyl 500MG Oral Tablet Provider: Diagnosis: Last Documented On 8 1:40PM By OFE DEVI ; [facility] Medications Administered Includes: Administered Medications from this encounter No Administered Medications Recorded Results Includes: Results discussed during this encounter No Results Recorded For Specified Dates History of Present Illness Includes: History of Present Illness from this encounter No History of Present Illness Recorded Social History No Social History Recorded - Smoking Status Unknown Medical History Includes: Medical History addressed during this encounter No Medical History Recorded Family History Includes: Family History addressed during this encounter No Family History Recorded Review of Systems Includes: Review of Systems from this encounter No Review of Systems Recorded Mental Status Includes: Mental Status from this encounter No Mental Status Recorded Functional Status Includes: Functional Status from this encounter No Functional Status Recorded Physical Exam Includes: Physical Exam from this encounter No Physical Exam Recorded Allergies Includes: Active Allergies No Known Allergies Insurance Includes: Active Insurance Policies Plan Name Member ID Group # Subscriber Relationship Effect claribel Dates - [facility] PLAN [id number] JOSEF hopkins Clinical Notes Includes: Clinical Notes from this encounter No Clinical Notes Recorded
--- OUTSIDE RECORDS SUMMARY | 2024-06-26 12:52 | XMS_ITS | Clinical Summary ---
Author Organization [facility] Address [address] [place] [address] Phone Care Team Providers Care Core Baker Name Role Phone Unavailable Unavailable Unavailable Reason for Visit and Chief Complaint MED CHECK Plan of Treatment No Plan of Treatment Recorded Assessments Includes: Assessments from this encounter No Assessments Recorded Medical Equipment - Implanted Devices Includes: Current Devices No Medical Equipment Recorded Medications Administered Includes: Administered Medications from this [...] ID Group # Subscriber Relationship Effect claribel - [facility] [id number] JOSEF GOMEZ [facility] Clinical Notes Includes: Clinical Notes from this encounter No Clinical Notes Recorded
--- OUTSIDE RECORDS SUMMARY | 2024-06-26 12:53 | XMS_ITS | Clinical Summary ---
Author Organization [facility] Address [address] [place] [address] Phone Care Team Providers Care Lug Loader Name Role Phone Unavailable Unavailable Unavailable Reason for Visit and Chief Complaint The Chief Complaint is: med check Plan of Treatment - Clinical summary provided to patient - Last Documented On 03/04/2017 1:52PM ; [facility] Instructions to patient Safe sex counseling Last Documented On 8 1:35PM ; [facility] Education and Decision Aids were provided during visit for: Patient counseling : Use of oral contraceptives discussed in detail including rare occurrence of heart attack, stroke, and leg clots. Patient understands that smoking increases the risk of serious side effects with any steroid-based contraceptive method Last Documented On 8 1:36PM ; [facility] Assessments Includes: Assessments from this encounter No Assessments Recorded Instructions Includes: Instructions from this encounter Instructions to patient Safe sex counseling Last Documented On 8 1:35PM ; [facility] Education and Decision Aids were provided during visit for: Patient counseling : Use of oral contraceptives discussed in detail including rare occurrence of heart attack, stroke, and leg clots. Patient understands that smoking increases the risk of serious side effects with any steroid-based contraceptive method Last Documented On 8 1:36PM ; [facility] Medical Equipment - Implanted Devices Includes: Current Devices No Medical Equipment Recorded Medications Includes: Medications discussed during this encounter and other current Medications Discontinued / Stopped on this date on 12/03/2016 Flagyl 500MG Oral Tablet Provider: Diagnosis: Last Documented On 8 1:40PM By OFE MATHEW ; [facility] New / Renewed during this visit OFE MATHEW on 03/04/2017 Aviane 0.1-20MG-MCG Oral Tablet Provider: OFE Degroot 30 day supply: 30 tablet, 9 refills Diagnosis: One tablet daily Pharmacy: [facility]) [address], [phone] - Last Documented On 8 1:57PM By OFE MATHEW ; [facility] Past Medications on file Provera 10MG Oral Tablet 11/27/2016 - 12/07/2016 Provi gary: OFE MATHEW Diagnosis: One tablet daily x 10 days Last Documented On 7 2:05PM By OFE MATHEW ; [facility] Medications Administered Includes: Administered Medications from this encounter No Administered Medications Recorded Vital Signs Includes: Vital Signs from this encounter Vital Name 03/04/2017 01:43P Blood Pressure Sitting (mmHg) 120/70 Height (in) 65 Weight (lb) 253 Body Mass Index (kg/m2) 42.1 Body Surface Area (m2) 2.2 Last Documented: On 03/04/2017 1:43PM ; [facility] Results Includes: Results discussed during this encounter Urine HCG [facility] Ordered by OFE MATHEW on 10/2017 Collected: Reported: 03/04/2017 13:51 Last Documented On 8 1:51PM ; [facility] Reviewed on 05/13/2017; All test results are final unless otherwise noted. Urine UCG NEG N (Normal) Last Documented On 8 1:51PM ; [facility] LOT # & EXP. DATE LOT# [id number] EXP:05/24/18 N (Normal) Last Documented On 8 1:51PM ; [facility] History of Present Illness Includes: History of Present Illness from this encounter No History of Present Illness Recorded Social History Description Last Updated Non-smoker 03/04/2017 Last Documented On 8 1:52PM ; [facility] Sexually active 03/04/2017 Last Documented On 8 1:52PM ; [facility] Smoking Status Unknown Procedures and Surgical History Includes: Procedures from this encounter Procedures Code Diagnosis Performing Provider Service L ocation Service Date test was negative Last Documented On 8 1:45PM ; [facility] Medical History Includes: Medical History addressed during this encounter Description Last Updated LMP: 01/31/2017 03/04/2017 Last Documented On 8 1:52PM ; [facility] Contraception: aviane 03/04/2017 Last Documented On 8 1:52PM ; [facility] 0 03/04/2017 Last Documented On 8 1:52PM ; [facility] Last pap smear date 11/27/2016 8 Last Documented On 8 1:52PM ; [facility] Family History Includes: Family History addressed during this encounter Description Last Updated Family history of diabetes mellitus pt p arents 03/04/2017 Last Documented On 8 1:52PM ; [facility] Family history of malignant female breas t neoplasm pt aunt 03/04/2017 Last Documented On 8 1:52PM ; [facility] Review of Systems Includes: Review of Systems from this encounter Systemic: Not feeling poorly (malaise). No fever. Head: No headache. Eyes: No vision problems. Otolaryngeal: No tinnitus. Breasts: No pain in breast. Cardiovascular: No chest pain or discomfort. Pulmonary: No dyspnea. Gastrointestinal: Normal appetite, no dysphagia, and no heartburn. No nausea, no vomiting, no abdominal pain, and no melena. No diarrhea. No pelvic pain. Genitourinary: No hematuria and no increase in urinary frequency. No dysuria. No genital lesion and no menorrhagia. No dysmenorrhea and no bleeding between periods. No vaginal discharge. Endocrine: No excessive sweating. Neurological: No motor disturbances and no sensory disturbances. Psychological: No anxiety and no depression. Skin: No skin lesions. Mental Status Includes: Mental Status from this encounter Description No anxiety Functional Status Includes: Functional Status from this encounter No Functional Status Recorded Physical Exam Includes: Physical Exam from this encounter Allergies Includes: Active Allergies No Known Allergies Encounters Encounter Provider Location Date Check-In Time Check-Out Time Diagnosis MED CHECK OFE HESTER WHNP-BC [facility] WEB COORDINATOR 03/04/2017 1:31PM 1:52PM Insurance Includes: Active Insurance Policies Plan Name Member ID Group # Subscriber Relationship Effect claribel Dates - [facility] PLAN [id number] JOSEF Vargas [facility] Clinical Notes Includes: Clinical Notes from this encounter No Clinical Notes Recorded
--- OUTSIDE RECORDS SUMMARY | 2024-06-26 12:53 | XMS_ITS | Clinical Summary ---
Author Organization [facility] Address [address] [place] [address] Phone Care Team Providers Care Chief Gauger Name Role Phone Unavailable Unavailable Unavailable Reason for Visit and Chief Complaint NO SHOW Plan of Treatment No Plan of Treatment [...] Location Date Check-In Time Check-Out Time Diagnosis NO SHOW OFE HESTER [facility] POULTRY HANGER 12/01/2017 10:24AM 11:59PM Insurance Includes: Active Insurance Policies Plan Name Member ID Group # Subscriber Relationship Effect claribel Dates - [facility] PLAN [id number] JOSEF GOMEZ hopkins Clinical Notes Includes: Clinical Notes from this encounter No Clinical Notes Recorded
--- OUTSIDE RECORDS SUMMARY | 2024-06-26 12:53 | XMS_ITS | Clinical Summary ---
Author Organization [facility] Address [address] [place] [address] Phone Care Team Providers Care Dispatch Supervisor Name Role Phone Unavailable Unavailable Unavailable Reason [...] Group # Subscriber Relationship Effect claribel - [facility] PLAN [id number] JOSEF GOMEZ Vargas [facility] Clinical Notes Includes: Clinical Notes from this encounter No Clinical Notes Recorded
--- OUTSIDE RECORDS SUMMARY | 2024-06-26 12:53 | XMS_ITS ---
Author Organization [facility] Address [address] [place] [address] Phone Care Team Providers Care Community Arts Worker Name Role Phone Unavailable Unavailable Unavailable Plan of Treatment Findings Encounter Date Ordered Clinical summary pro vided to patient MED CHECK with OFE A MIR [facility] 03/04/2017 Last Documented On 8 1:52PM ; [facility] Ordered Clinical summary pro vided to patient NEW DIRECTOR OF CARDIOLOGY EXAM with OFE HESTER [facility] 11/27/2016 Last Documented On 7 2:05PM ; [facility] Instructions to patient Safe sex counseling Last Documented On 8 1:35PM ; [facility] Instructions for patient : B reast Self Exam discussed Last Documented On 7 1:35PM ; [facility] Lose weight Last Documented On 7 1:50PM ; [facility] Gardasil information given a nd series encouraged Series completed! Last Documented On 7 2:05PM ; [facility] Safe sex counseling Last Documented On 7 1:35PM ; [facility] Education and Decision Aids were provided during visit for: Patient counseling : Use of oral contraceptives discussed in detail including rare occurrence of heart attack, stroke, and leg clots. Patient understands that smoking increases the risk of serious side effects with any steroid-based contraceptive method Last Documented On 8 1:36PM ; [facility] Patient Education: Daily katty cium and vitamin D Last Documented On 7 1:35PM ; [facility] Patient Education: weight be aring exercise Last Documented On 7 1:35PM ; [facility] control consent review ed and signed Last Documented On 7 1:50PM ; [facility] Assessments Includes: Assessments for all patient encounters Findings Encounter Date NORMAL FEMALE EXAM NEW DIRECTOR OF CARDIOLOGY EXAM with OFE SO RADHA-BC 11/27/2016 Last Documented On 7 2:05PM ; [facility] Instructions Includes: Instructions for all patient encounters Instructions to patient Safe sex counseling Last Documented On 8 1:35PM ; [facility] Instructions for patient : B reast Self Exam discussed Last Documented On 7 1:35PM ; [facility] Lose weight Last Documented On 7 1:50PM ; [facility] Gardasil information given a nd series encouraged Series completed! Last Documented On 7 2:05PM ; [facility] Safe sex counseling Last Documented On 7 1:35PM ; [facility] Education and Decision Aids were provided during visit for: Patient counseling : Use of oral contraceptives discussed in detail including rare occurrence of heart attack, stroke, and leg clots. Patient understands that smoking increases the risk of serious side effects with any steroid-based contraceptive method Last Documented On 8 1:36PM ; [facility] Patient Education: Daily katty cium and vitamin D Last Documented On 7 1:35PM ; [facility] Patient Education: weight be aring exercise Last Documented On 7 1:35PM ; [facility] control consent review ed and signed Last Documented On 7 1:50PM ; [facility] Medical Equipment - Implanted Devices Includes: Current and historical Devices No Medical Equipment Recorded Medications Includes: Current and historical Medications Past Medications on file Aviane 0.1-20MG-MCG Oral Tablet 03/04/2017 - 12/29/2017 Provider: OFE SERRANO Diagnosis: One tablet daily Last Documented On 8 1:57PM By OFE MATHEW ; [facility] Flagyl 500MG Oral Tablet 12/03/2016 - 03/04/2017 Provi gary: Diagnosis: Last Documented On 8 1:40PM By OFE MATHEW ; [facility] Provera 10MG Oral Tablet 11/27/2016 - 12/07/2016 Provi gary: OFE MATHEW Diagnosis: One tablet daily x 10 days Last Documented On 7 2:05PM By OFE MATHEW ; [facility] Aviane 0.1-20MG-MCG Oral Tablet 11/27/2016 - 03/04/2017 Provider: OFE SERRANO Diagnosis: One tablet daily Last Documented On 8 1:52PM By OFE MATHEW ; [facility] Medications Administered Includes: Administered Medications in patient's chart No Administered Medications Recorded Results Includes: Results from 06/27/2023 through 06/26/2024 No Results Recorded For Specified Dates History of Present Illness History of Present Illness not supported for this document type No History of Present Illness Recorded Social History No Social History Recorded - Smoking Status Unknown Medical History Includes: Medical History in patient's chart Description Last Updated 0 03/04/2017 Last Documented On 8 1:52PM ; [facility] Family History Includes: Family History in patient's chart Description Last Updated Family history of diabetes mellitus pt p arents 03/04/2017 Last Documented On 8 1:52PM ; [facility] Family history of malignant female breas t neoplasm pt aunt 03/04/2017 Last Documented On 8 1:52PM ; [facility] Review of Systems Review of Systems not supported for this document type No Review of Systems Recorded Mental Status No Mental Status Recorded Functional Status No Functional Status Recorded Physical Exam Physical Exam not supported for this document type No Physical Exam Recorded Allergies Includes: Active, inactive, and resolved Allergies No Known Allergies Insurance Includes: Active Insurance Policies Plan Name Member ID Group # Subscriber Relationship Effect claribel Dates 1 - [facility] PLAN [id number] JOSEF Vargas [facility] Clinical Notes Includes: Signed Clinical Notes starting from 03/15/2022 No Clinical Notes Recorded
== END 2024-06-25 09:00 | disposition home or self-care (01) ==
PROVIDERS: Emergency Provider Registered Nurse
DX: R21 Rash and other nonspecific skin eruption (principal); L23.9 Allergic contact dermatitis, unspecified cause
CPT/HCPCS: 99213; G0463

== ENCOUNTER 2024-11-24 17:30 | Emergency (ER) | payer OTHER, SELFPAY ==
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
[2024-11-24 17:39] VITALS: BP 149/99; PULSE 115; RESP 20; TEMP 36.2; O2SAT 98
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
[2024-11-24] MEDS: KETOROLAC 30 MG/ML VIAL (*BKC) IM (19:54)
[2024-11-24] MEDS: CYCLOBENZAPRINE HCL 10 MG TABLET PO (19:55)
[2024-11-24] MEDS: LIDOCAINE 5% PATCH 1 PATCH TRANSDERM (19:55)
[2024-11-24 19:57] LABS: Pregnancy On Board Control Positive
== END 2024-11-24 21:15 | disposition home or self-care (01) ==
PROVIDERS: Emergency Provider Student in an Organized Health Care Education/Training Program
DX: S16.1XXA Strain of muscle, fascia and tendon at neck level, initial encounter (principal); E66.01 Morbid (severe) obesity due to excess calories; Z68.41 Body mass index [BMI] 40.0-44.9, adult; M47.812 Spondylosis without myelopathy or radiculopathy, cervical region; V49.40XA Driver injured in collision with unspecified motor vehicles in traffic accident, initial encounter
CPT/HCPCS: 72125; 81025; 96372; 99284; A9270; J1885